=== PATIENT | male | born 1985 | race African-American/Black ===

== ENCOUNTER 2018-07-01 18:56 | Inpatient (IN) ==
[2018-07-01] MEDS ORDERED: BUPIVACAINE 0.25% /EPI 10 ML VIAL ONE (19:09)
[2018-07-01] MEDS ORDERED: HYDROmorphone 2 MG/1 ML VIAL IV STA (19:18)
[2018-07-01] MEDS ORDERED: ONDANSETRON 4 MG/2 ML VIAL IV STA (19:18)
[2018-07-01] MEDS ORDERED: ONDANSETRON 4 MG/2 ML VIAL ONE (19:18)
[2018-07-01] MEDS ORDERED: HYDROmorphone 2 MG/1 ML VIAL ONE (19:19)
[2018-07-01] MEDS ORDERED: ONDANSETRON 4 MG/2 ML VIAL IV PRN (20:16)
[2018-07-01] MEDS ORDERED: MAGNESIUM HYDROXIDE SUSP 30 ML UDCUP PO PRN (20:16)
[2018-07-01] MEDS ORDERED: HYDROmorphone 2 MG/1 ML VIAL IV PRN (20:16)
[2018-07-01 20:54] LABS: Basophils % 0.3 % (0.0-0.8); Eosinophils # 0.2 10*3/uL (0.0-0.87); Eosinophils % 1.7 % (0.00-10.9); Hematocrit 43.6 VOL% (42.0-52.0); Immature Granulocytes % 0.6 %; Immature Granulocytes Absolute 0.07 #; Lymphocytes # 2.7 10*3/uL (1.4-4.0); Lymphocytes % 21.7 % (21.2-54.2); Mean Corpuscular HGB Conc 34.4 GM/DL (32-36); Mean Corpuscular Hemoglobin 32 PG (27-34); Mean Corpuscular Volume 93.6 FL (87-102); Mean Platelet Volume 9.7 FL (9.6-12.0); Monocytes % 8.1 % (1.7-12.7); Neutrophils # 8.3 10*3/uL (1.4-7.4); Neutrophils % 67.6 % (38.7-73.9); Platelet Count 289 T/CUMM (130-400); Red Blood Count 4.66 MC/CUMM (3.8-5.5); Red Cell Distribution Width 11.6 % (9.3-17.3); White Blood Count 12.3 T/CUMM (4-12)
[2018-07-01 21:12] LABS: Bilirubin,Total 0.6 MG/DL (0.2-1.0); Calcium 9.3 MG/DL (8.5-10.1); Osmolality,Calculated 278.3 MOS/KG (273-304); Potassium 3.8 MMOL/L (3.5-5.1)
[2018-07-01] MEDS: SODIUM CHLORIDE 0.9% 1,000 ML IV SCH (21:16)
[2018-07-02] MEDS ORDERED: ceFAZolin 2,000 MG in PREMIX 1 EACH IV ONE ×2 (06:30→12:30)
[2018-07-02] MEDS ORDERED: GENTAMICIN INJ 120 MG in PREMIX 1 EACH IV ONE (06:46)
[2018-07-02] MEDS: SODIUM CHLORIDE 0.9% 1,000 ML IV SCH (07:23)
[2018-07-02] MEDS ORDERED: DIPH/TET/ACEL PERT BOOSTER VACCINE 0.5 ML VIAL IM ONE ×2 (07:37→08:20)
[2018-07-02] MEDS ORDERED: BUPIVACAINE 0.5% 50 ML VIAL ONE (08:28)
[2018-07-02] MEDS ORDERED: BACITRACIN OINT 0.9 GM PACK TOP ONE (09:12)
[2018-07-02] MEDS ORDERED: PROPOFOL 200 MG/20 ML VIAL IV ONE (09:42)
[2018-07-02] MEDS ORDERED: ONDANSETRON 4 MG/2 ML VIAL ONE (09:42)
[2018-07-02] MEDS ORDERED: MIDAZOLAM 2 MG/2 ML VIAL ONE (09:42)
[2018-07-02] MEDS ORDERED: SEVOFLURANE 1 UNIT/15 MINUTE INH ONE (09:42)
[2018-07-02] MEDS ORDERED: fentaNYL 100 MCG/2 ML VIAL ONE (09:42)
[2018-07-02] MEDS ORDERED: HYDROmorphone 2 MG/1 ML VIAL IV PRN (09:48)
[2018-07-02] MEDS ORDERED: ONDANSETRON 4 MG/2 ML VIAL IV PRN (09:48)
[2018-07-02 14:31] VITALS: BP 113/85
== END 2018-07-02 14:20 | disposition home or self-care (01) | DRG 514 ==
LOC: N.ED 18:56 → N.EDINP 19:42 → N.3E 19:59
PROVIDERS: ADMIT Orthopaedic Surgery; ATTEND Orthopaedic Surgery